=== PATIENT | male | born 1945 | race Caucasian/White ===

== ENCOUNTER 2018-06-06 09:56 | Emergency (ER) | payer OTHER ==
[~2018-06-06] VITALS: Ht 167.6 cm; Wt 80.7 kg
[2018-06-06] MEDS ORDERED: RESTORIL7.5 MG (10:06)
== END 2018-06-06 17:08 | disposition home or self-care (01) ==
LOC: ER 09:56
DX: S00.83XA Contusion of other part of head, initial encounter (principal); W18.39XA Other fall on same level, initial encounter; Y93.89 Activity, other specified; Y92.89 Other specified places as the place of occurrence of the external cause; Y99.8 Other external cause status